=== PATIENT | male | born 1950 | race Caucasian/White ===

== ENCOUNTER 2018-02-07 02:05 | Inpatient (IN) | payer MEDICARE, OTHER ==
[~2018-02-07] VITALS: Ht 177.8 cm; Wt 106.1 kg
--- NOTE | ~2018-02-07 | CON ---
[address] [address] CONSULTATION Name: KAILYN SAUNDERS Room: [place] [address] ADM IN M.R.#: [id number] Admission: 02/07/18 Attend Phys: Jude Muñoz MD Discharge: Date of : 54 Report #: [id number] THIS REPORT FOR: //name// CC: Bill Muñoz DATE OF SERVICE: 02/07/2018 REASON FOR CONSULTATION: Tinea cruris. HISTORY OF PRESENT ILLNESS: A 67-year-old white man with a month history of rash in groin, getting worse despite topical nystatin, visited a couple of Emergency Room. No better. He is admitted with severe tinea cruris and possible secondary lesions of each allergic reaction on left leg site and abdominal wall. PAST MEDICAL HISTORY: Diabetes mellitus for a number of years. C-spine fusion. DRUG ALLERGIES: None listed. MEDICATIONS: The patient on treatment with nystatin until recently. He received a gram of Rocephin, Diflucan 150 mg p.o. and he is on vancomycin 1.5 grams IV every 8 hours. At home, this patient appears to be on treatment with ascorbic acid, cyclobenzaprine, lisinopril, omeprazole, topiramate, meloxicam and melatonin. He tells me he may take metformin and another oral medication, but I do not see those on the ER records either. SOCIAL HISTORY: See H and P, old records. FAMILY HISTORY: See H and P, old records. REVIEW OF SYSTEMS: See H and P. PHYSICAL EXAMINATION: GENERAL: Well-developed man, not toxic looking. VITAL SIGNS: Temperature 98.7, pulse 94, respirations 18, BP 144/85. HEENMT: Pupils reactive. Mouth: Upper and lower plates. NECK: Supple. LUNGS: Clear. HEART: S1, S2. ABDOMEN: Soft, no masses or megaly. GROIN: Revealed the worst lesions of tinea cruris I have seen with wet spots, some skin denuded, some satellite lesions not only the groins by involving the scrotum and he got secondary itch lesions on the posterior aspect left leg and the left side anterior and the left flank of the abdomen. NEUROLOGIC: Grossly [place] [address] CONSULTATION Name: KAILYN SAUNDERS Room: [address] IN [facility].#: [id number] Admission: 02/07/18 Attend Phys: Jude Muñoz MD Discharge: Date of : 54 Report #: [id number] LABORATORY DATA: Noted and revealed the following except normal: BUN 74, creatinine 171, calcium 8.4, albumin 3.3. WBC 11.8, hemoglobin 12.9. Urinalysis with trace blood and leukocyte esterase. ASSESSMENT: 1. Severe tinea cruris involving both groins and scrotum with secondary itch reactions on the left leg, left side and left flank. 2. Diabetes mellitus. 3. Mild azotemia. SUGGESTIONS: Recommend obviously he may have superimposed Staph or strep infection of the groin lesions. Consequently, I agree with vancomycin, do get culture of the groin lesions and also MRSA by PCR, Lotrisone cream t.i.d. to affected areas, Diflucan 200 mg p.o. daily. Thank you for requesting my suggestions. By: [id number] Shetty MD /nt
[~2018-02-07 02:05] MED LIST: ALLERGY MULTI-1 EACH PO; CHROMIUM400 MCG PO; CINNAMON EXTRACT; CYMBALTA60 MG PO; ENDOCET 10-3251 EACH PO; FISH OIL 1,2001 EAC4 PO; FLEXERIL PO; GABAPENTIN100 MG PO; GLUCOSAMINE &1 EAC1 PO; INDERAL LA60 M1 PO; LISINOPRIL40 MG PO; LUNESTA2 MG PO; MELATONIN3 MG PO; MOBIC15 MG PO; MULTIVITAMINS1 EAC7 PO; NOHOMEMEDICATIONS; NORCO 5-325 TA1 EACH PO; NORFLEX100 MG PO; OMEPRAZOLE 20 M20 MG PO; PERCOCET; SIMVASTATIN20 MG PO; TOPIRAGEN25 MG PO; TRAMADOL 50 MG50 MG; TRICOR145 MG PO; VIAGRA100 MG PO; VITAMIN D3400 UNI1 PO; VITCB500GO PO; [UNRECOGNIZED DRUG - OTHER]; [UNRECOGNIZED DRUG - OTHER] PO
[2018-02-07 02:13] VITALS: BP 128/80
[2018-02-07 02:51] LABS: ABSOLUTE BASOPHILS 0.2 thou/uL (0.0-0.2); ABSOLUTE EOSINOPHILS 0.4 thou/uL (0.0-0.7); ABSOLUTE LYMPHOCYTES 1.9 thou/uL (0.8-5.3); ABSOLUTE NEUTROPHILS 8.4 thou/uL (1.6-8.1); BASOPHILS 1.3 %; EOSINOPHILS 3.5 %; HEMATOCRIT 38.7 % (42.0-52.0); HEMOGLOBIN 12.9 gm/dL (14.0-18.0); MCH 30.2 pg (26.0-34.0); MCHC 33.2 g/dL (28.0-37.0); MCV 90.9 fL (80.0-100.0); MONOCYTES 8.4 %; MPV 7.7 fl. (7.2-11.1); NUCLEATED RBCS 0 /100WBC; PLATELET COUNT* 214 thou/uL (150-400); POLYS 70.8 %; RBC 4.26 mil/uL (4.50-6.00); RDW-CV 13.9 % (10.5-14.5); WBC 11.8 thou/uL (4.0-11.0)
[2018-02-07 02:56] LABS: CALCIUM 8.4 mg/dL (8.5-10.1); CREATININE 1.3 mg/dL (0.6-1.3); POTASSIUM 3.6 mmol/L (3.5-5.1)
[2018-02-07 03:00] LABS: ALBUMIN 3.3 g/dL (3.4-5.0); TOTAL BILIRUBIN 0.3 mg/dL (<0.1-1.0); TOTAL PROTEIN 6.8 g/dL (6.4-8.2)
[2018-02-07 04:28] LABS: URINE BILIRUBIN NEGATIVE (Negative); URINE BLOOD TRACE (Negative); URINE CLARITY CLEAR; URINE COLOR YELLOW; URINE GLUCOSE-RANDOM NEGATIVE (Negative); URINE KETONES NEGATIVE (Negative); URINE LEUKOCYTES-REFLEX TRACE (Negative); URINE NITRITE-REFLEX NEGATIVE (Negative); URINE PROTEIN NEGATIVE (Negative); URINE SPECIFIC GRAVITY 1.015 (1.005-1.030); URINE UROBILINOGEN 0.2 E.U./dl (0.2-1.0)
[2018-02-07 04:36] LABS: BACTERIA-REFLEX None Seen /HPF (None Seen); CRYSTALS None Seen /LPF (None Seen); HYALINE CASTS 0-3 Few /LPF (None Seen); SQUAMOUS 0-3 Few /LPF (0-3); URINE RBC 0-2 Rare /HPF (0-2); URINE WBC-REFLEX 0-5 Rare /HPF (0-5)
[2018-02-07 05:33] VITALS: BP 144/85
[2018-02-07 08:45] VITALS: BP 136/76
[2018-02-07] MEDS ORDERED: ATORVASTATIN CA40 MG PO (11:10)
[2018-02-07] MEDS ORDERED: AMBIEN 5 MG TABL5 M1 PO (11:10)
[2018-02-07] MEDS ORDERED: SERTRALINE HCL100 MG PO (11:11)
[2018-02-07] MEDS ORDERED: LOSARTAN-HCTZ1 EAC1 PO (11:12)
[2018-02-07] MEDS ORDERED: AMARYL2 MG PO (11:13)
[2018-02-07] MEDS ORDERED: GLUCOPHAGE XR500 MG PO (11:13)
[2018-02-07] MEDS ORDERED: PERCOCET 7.5-31 EACH PO (11:14)
[2018-02-07] MEDS ORDERED: FISH OIL 1,001000 M2 PO (11:16)
[2018-02-07 12:00] VITALS: BP 115/73
[2018-02-07 16:00] VITALS: BP 125/77
[2018-02-07 20:10] VITALS: BP 138/74
[2018-02-07 22:05] LABS: GLYCOHEMOGLOBIN (HGB A1C) 7.6 % (4.8-5.6)
[2018-02-08] VITALS: BP 153/84
[2018-02-08 04:00] VITALS: BP 141/82
[2018-02-08 04:06] LABS: HEMATOCRIT 38.5 % (42.0-52.0); HEMOGLOBIN 12.8 gm/dL (14.0-18.0); MCH 30.2 pg (26.0-34.0); MCHC 33.2 g/dL (28.0-37.0); MCV 90.8 fL (80.0-100.0); MPV 7.7 fl. (7.2-11.1); RBC 4.24 mil/uL (4.50-6.00); RDW-CV 13.3 % (10.5-14.5)
[2018-02-08 04:22] LABS: ALBUMIN 2.9 g/dL (3.4-5.0); CALCIUM 8.2 mg/dL (8.5-10.1); CREATININE 0.9 mg/dL (0.6-1.3); MAGNESIUM 1.5 mg/dL (1.8-2.4); POTASSIUM 3.5 mmol/L (3.5-5.1); TOTAL BILIRUBIN 0.3 mg/dL (<0.1-1.0); TOTAL PROTEIN 6.5 g/dL (6.4-8.2)
[2018-02-08 08:30] VITALS: BP 156/91
[2018-02-08 20:08] VITALS: BP 149/85
[2018-02-09 07:45] VITALS: BP 183/95
[2018-02-09 16:00] VITALS: BP 162/96
[2018-02-10 08:20] VITALS: BP 139/87
[2018-02-10 13:42] VITALS: BP 139/87
[2018-02-10] MEDS ORDERED: TOPAMAX50 MG PO (13:50)
[2018-02-10] MEDS ORDERED: KEFLEX500 M1 PO (13:52)
[2018-02-10] MEDS ORDERED: DIFLUCAN200 MG PO (13:53)
== END 2018-02-10 14:58 | disposition home or self-care (01) | DRG 607 ==
LOC: M.ERS 02:05 → M.2W 04:23 → M.ORTHSURG 04:23 → M.TBA-ER 04:23 → M.2W 04:50 → M.ORTHSURG 02-08 08:18
PROVIDERS: Emergency Medicine; Internal Medicine
DX: B35.6 Tinea cruris (principal); N17.9 Acute kidney failure, unspecified; R65.10 Systemic inflammatory response syndrome (SIRS) of non-infectious origin without acute organ dysfunction; L03.818 Cellulitis of other sites; B37.89 Other sites of candidiasis; L02.215 Cutaneous abscess of perineum; N39.0 Urinary tract infection, site not specified; F12.90 Cannabis use, unspecified, uncomplicated; M54.2 Cervicalgia; M17.11 Unilateral primary osteoarthritis, right knee; E11.9 Type 2 diabetes mellitus without complications; G89.29 Other chronic pain; M54.9 Dorsalgia, unspecified; F17.210 Nicotine dependence, cigarettes, uncomplicated; I10 Essential (primary) hypertension; Z90.49 Acquired absence of other specified parts of digestive tract; Z79.899 Other long term (current) drug therapy; Z98.1 Arthrodesis status

== ENCOUNTER 2020-10-16 22:15 | Emergency (ER) | payer MEDICARE, OTHER ==
[~2020-10-16] VITALS: Ht 177.8 cm; Wt 86.2 kg
[~2020-10-16 22:15] MED LIST changes: +AMARYL2 MG PO; +AMBIEN 5 MG TABL5 M1 PO; +ATORVASTATIN CA40 MG PO; +DIFLUCAN200 MG PO; +FISH OIL 1,001000 M2 PO; +GLUCOPHAGE XR500 MG PO; +KEFLEX500 M1 PO; +LOSARTAN-HCTZ1 EAC1 PO; +PERCOCET 7.5-31 EACH PO; +SERTRALINE HCL100 MG PO; +TOPAMAX50 MG PO
[2020-10-16] MEDS ORDERED: MELATONIN1 MG/1 ML PO (22:23)
[2020-10-16] MEDS ORDERED: GLUCOSAMINE &1 EACH PO (22:26)
[2020-10-16] MEDS ORDERED: ABILIFY 5 MG TAB5 M1 PO (22:26)
[2020-10-16] MEDS ORDERED: FLEXERIL PO (22:27)
[2020-10-17 00:05] LABS: ABSOLUTE BASOPHILS 0.1 thou/uL (0.0-0.2); ABSOLUTE EOSINOPHILS 0.2 thou/uL (0.0-0.7); ABSOLUTE LYMPHOCYTES 1.4 thou/uL (0.8-5.3); ABSOLUTE MONOCYTES 0.5 thou/uL (0.0-1.2); ABSOLUTE NEUTROPHILS 5.1 thou/uL (1.6-8.1); BASOPHILS 0.9 %; HEMATOCRIT 40.1 % (42.0-52.0); HEMOGLOBIN 13.5 gm/dL (14.0-18.0); LYMPHOCYTES 19.4 %; MCH 31.5 pg (26.0-34.0); MCHC 33.6 g/dL (28.0-37.0); MCV 93.5 fL (80.0-100.0); MONOCYTES 7.3 %; MPV 7.5 fl. (7.2-11.1); NUCLEATED RBCS 0 /100WBC; PLATELET COUNT* 154 thou/uL (150-400); POLYS 69.4 %; RBC 4.29 mil/uL (4.50-6.00); RDW-CV 13.2 % (10.5-14.5); WBC 7.3 thou/uL (4.0-11.0)
[2020-10-17 00:08] LABS: CALCIUM 8.4 mg/dL (8.5-10.1); POTASSIUM 3.5 mmol/L (3.5-5.1)
[2020-10-17 00:10] LABS: PROTIME 10.9 Seconds (9.20-11.50)
[2020-10-17 00:18] LABS: ALBUMIN 3.9 g/dL (3.4-5.0); TOTAL BILIRUBIN 0.4 mg/dL (<0.1-1.0); TOTAL PROTEIN 6.5 g/dL (6.4-8.2)
[2020-10-17 01:58] VITALS: BP 143/87
--- NOTE | 2020-10-17 09:43 | EKG ---
[place] [address] ELECTROCARDIOGRAM REPORT Name: KAILYN SAUNDERS 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
== END 2020-10-17 01:59 | disposition home or self-care (01) ==
LOC: M.ERS 22:15
PROVIDERS: Emergency Medicine
DX: S00.83XA Contusion of other part of head, initial encounter (principal); S40.012A Contusion of left shoulder, initial encounter; S80.212A Abrasion, left knee, initial encounter; I10 Essential (primary) hypertension; E11.9 Type 2 diabetes mellitus without complications; Z90.49 Acquired absence of other specified parts of digestive tract; W01.0XXA Fall on same level from slipping, tripping and stumbling without subsequent striking against object, initial encounter; Y93.89 Activity, other specified; Y92.89 Other specified places as the place of occurrence of the external cause; Y99.8 Other external cause status